=== PATIENT | male | born 1995 ===

== ENCOUNTER 2016-11-08 19:08 | Emergency (ER) | payer SELFPAY ==
[2016-11-08 19:14] VITALS: BP 136/78; RESP 20; TEMP 98.1; O2SAT 99
--- NOTE | 2016-11-08 19:35 | ED PDOC ---
Lower Extremity Pain/Injury Time Seen by Provider: 11/08/16 19:18 Chief Complaint (Nursing): Lower Extremity Problem/Injury Chief Complaint (Provider): Left Knee Pain History Per: Patient History/Exam Limitations: no limitations Onset/Duration Of Symptoms: Days Current Symptoms Are (Timing): Still Present Additional Complaint(s): Isael Machado, a 20 year old male, presents to the ED complaining of left knee pain. The patient states that he injured his knee while playing soccer yesterday. He is able to bear weight but has pain when doing so, no numbness or tingling to affected leg. Past Medical History Reviewed: Historical Data, Nursing Documentation, Vital Signs Vital Signs: Last Vital Signs Temp 98.1 F 11/08/16 19:12 Pulse 97 H 11/08/16 19:12 Resp 20 11/08/16 19:12 BP 136/78 11/08/16 19:12 Pulse Ox 99 11/08/16 19:12 - Medical History PMH: No Chronic Diseases - Surgical History Surgical History: No Surg Hx - Family History Family History: States: No Known Family Hx - Living Arrangements Living Arrangements: With Family - Social History Current smoker - smoking cessation education provided: No Alcohol: Social Drugs: Denies - Home Medications Home Medications: Ambulatory Orders Medication Instructions Recorded Ibuprofen [Motrin Tab] 800 mg PO Q8 PRN #20 tab 11/08/16 - Allergies Allergies/Adverse Reactions: Allergies Allergy/AdvReac Type Severity Reaction Status Date / Time No Known Allergies Allergy Verified 11/08/16 19:10 Wells Criteria for PE - Wells Criteria for Pulmonary Embolism Clinical Signs and Symptoms of DVT: No P.E is #1 Diagnosis, or Equally Likely: No Heart Rate >100: No Immobilization at least 3 days;Surgery previous 4 weeks: No Previous, objectively diagnosed PE or DVT: No Hemoptysis: No Malignancy w/treatment within 6 months, or palliative: No Total Score: 0 Review of Systems ROS Statement: Except As Marked, All Systems Reviewed And Found Negative Musculoskeletal: Positive for: Other (Left knee injury) Physical Exam - Reviewed Nursing Documentation Reviewed: Yes Vital Signs Reviewed: Yes - Physical Exam Appears: Positive for: Non-toxic, No Acute Distress Skin: Positive for: Normal Color. Negative for: Rash Eye Exam: Positive for: Normal appearance Extremity: Positive for: Tenderness (Moderate tenderness to left knee anteriorly ), Swelling (Diffusely to anterior knee). Negative for: Normal ROM (Limited ROM of left knee secondary to pain), Deformity Neurologic/Psych: Positive for: Alert, Oriented - ECG O2 Sat by Pulse Oximetry: 99 (RA) Pulse Ox Interpretation: Normal - Other Rad Left knee x-ray X-Ray: Interpreted by Me, Viewed By Me X-Ray Interpretation: no fx, no dis, effusion Medical Decision Making Medical Decision Makin Initial Impression: 20 year old male presenting with left knee pain Initial Plan: * Motrin Tab 600mg PO * X-ray left Knee Pain is improved after motrin. Patient declined crutches, knee immobilizer applied to left knee. 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 [facility] [employer] [facility] follow up information also provided. Scribe Attestation Documented by Migdalia Barry acting as a scribe for Cristiane Muller PA-C. Scribe Attestation All medical record entries made by the Scribe were at my direction and personally dictated by me. I have reviewed the chart and agree that the record accurately reflects my personal performance of the history, physical exam, medical decision making, and the department course for this patient. I have also personally directed, reviewed, and agree with the discharge instructions and disposition. Procedures - Splinting Location: left knee Pre-Made Type: knee immobilizer Pre-Proc Neuro Vasc Exam: normal Post-Proc Neuro Vasc Exam: normal Disposition - Clinical Impression Clinical Impression: Knee sprain - Patient ED Disposition Is Patient to be Admitted: No Counseled Patient/Family Regarding: Studies Performed, Diagnosis, Need For Followup, Rx Given - Disposition Referrals: Luis Whitley III, MD [Staff Provider] - [facility] [Outside] Disposition Time: 20:08 Condition: STABLE Additional Instructions: Ice, rest and elevate affected area. Take prescription meds as directed as needed for pain. Follow-up with clinic or orthopedist in one to 2 days. Prescriptions: Ibuprofen [Motrin Tab] 800 mg PO Q8 PRN #20 tab PRN Reason: Pain, Moderate (4-7) Instructions: Knee Sprain (ED), Knee Immobilizer (ED) Forms: [facility] (Welsh) Print Language: CAMEROONIAN
[2016-11-08 20:24] VITALS: PULSE 79
--- NOTE | 2016-11-09 10:08 | RAD ---
PROCEDURE: Left Knee Radiographs. HISTORY: Pain. COMPARISON: None. FINDINGS: BONES: There is no acute displaced fracture or bone destruction. Bone alignment and mineralization are normal. JOINTS: Normal. No osteoarthritis. JOINT EFFUSION: There is a small suprapatellar joint effusion. OTHER FINDINGS: There is moderate prepatellar soft tissue swelling. IMPRESSION: Moderate prepatellar soft tissue swelling and small suprapatellar joint effusion. No acute displaced fracture or bone destruction.
== END 2016-11-08 20:17 | disposition home or self-care (01) ==
LOC: H.ER 19:08
DX: S83.92XA Sprain of unspecified site of left knee, initial encounter (principal); X50.9XXA Other and unspecified overexertion or strenuous movements or postures, initial encounter; Y93.66 Activity, soccer; M25.462 Effusion, left knee